=== PATIENT | female | born 1995 | race Caucasian/White ===

== ENCOUNTER 2024-07-28 01:00 | Inpatient (IN) | payer OTHER ==
[2024-07-28 13:49] VITALS: BMI 29.5
[2024-07-28] MEDS ORDERED: FENTANYL/BUPIVACAINE/NS/PF - PCEA - 50 ML DISP.SYRIN EP ONE ×3 (14:06→21:35)
[2024-07-28 14:13] LABS: ABSOLUTE IMMATURE GRANULOCYTES 0.06 x10^3/uL (0.0-0.031); BASOPHILS # 0.02 x10^3/uL (0.01-0.08); EOSINOPHIL % 0.2 % (0.7-5.8); EOSINOPHILS # 0.03 x10^3/uL (0.04-0.36); HEMATOCRIT 33.7 % (34.1-44.9); HEMOGLOBIN 11.3 g/dL (11.2-15.7); MCHC 33.5 g/dl (32.2-35.5); MEAN CELL VOLUME 87.5 fl (79.4-94.8); MEAN PLT VOLUME 9.6 fl (9.4-12.3); MONOCYTE # 1.16 x10^3/uL (0.24-0.86); MONOCYTE % 9.3 % (4.7-12.5); PLATELET COUNT 178 x10^3/uL (182-369)
[2024-07-28 14:20] LABS: INR 1.03 (0.83-1.09); PROTHROMBIN TIME (PATIENT) 11.3 SEC (9.7-13.0)
[2024-07-28] MEDS ORDERED: BUPIVACAINE HCL/PF 0.25% (2.5MG/ML) 10 ML VIAL ONE ×2 (14:21→20:20)
[2024-07-28] MEDS ORDERED: FENTANYL CITRATE/PF 50 MCG/ML VIAL ONE ×2 (14:21→20:20)
[2024-07-28 14:23] LABS: ACTIVATED PTT 26.3 SECONDS (25.2-36.5)
[2024-07-28 14:32] LABS: POTASSIUM 3.3 mmol/L (3.5-5.1)
[2024-07-28 14:34] LABS: BLOOD UREA NITROGEN 13.2 mg/dL (7-18); CALCIUM 8.5 mg/dL (8.5-10.1)
[2024-07-28 14:38] LABS: CREATININE 0.9 mg/dL (0.55-1.3)
[2024-07-28] MEDS: ELECTROLYTE-148 SOLN 1,000 ML IV SCH (14:55)
[2024-07-28] MEDS ORDERED: NALOXONE HCL 0.4 MG/ML VIAL IVPUSH PRN (15:23)
[2024-07-28] MEDS ORDERED: OXYTOCIN 30 UNITS in 0.9% NS 30 UNIT/500 ML INFUS.BAG IVPB ONE (15:34)
[2024-07-28] MEDS: OXYTOCIN 30 UNITS in 0.9% NS 30 UNIT/500 ML INFUS.BAG IVPB SCH (15:40)
[2024-07-28 17:24] LABS: HIV INTERPRETATION NEGATIVE (NEGATIVE)
[2024-07-28] MEDS: FENTANYL/BUPIVACAINE/NS/PF - PCEA - 50 ML DISP.SYRIN EP SCH (19:12)
[2024-07-29] MEDS ORDERED: FENTANYL/BUPIVACAINE/NS/PF - PCEA - 50 ML DISP.SYRIN EP ONE ×4 (00:25→09:49)
[2024-07-29] MEDS ORDERED: BUPIVACAINE HCL/PF 0.25% (2.5MG/ML) 10 ML VIAL ONE ×2 (00:52→06:33)
[2024-07-29] MEDS ORDERED: FENTANYL CITRATE/PF 50 MCG/ML VIAL ONE ×2 (00:52→06:33)
[2024-07-29] MEDS: FENTANYL/BUPIVACAINE/NS/PF - PCEA - 50 ML DISP.SYRIN EP SCH ×2 (06:51→09:53)
[2024-07-29] MEDS ORDERED: OXYTOCIN 20 UNITS in 0.9% NS 20 UNIT/1,000 ML INFUS.BAG IV ONE (11:35)
[2024-07-29] MEDS ORDERED: PHENYLEPHRINE HCL 10 MG/1 ML SINGLE DOSE VIAL ONE (12:49)
[2024-07-29] MEDS ORDERED: NITROGLYCERIN 50 MG/10 ML VIAL IVPB ONE (12:49)
[2024-07-29] MEDS ORDERED: ceFAZolin SODIUM 1 GM VIAL ONE (12:58)
[2024-07-29] MEDS: METHYLERGONOVINE MALEATE 0.2 MG/1 ML AMP IM PRN (13:06)
[2024-07-29] MEDS: OXYTOCIN 20 UNITS in 0.9% NS 20 UNIT/1,000 ML INFUS.BAG IV SCH (13:30)
[2024-07-29] MEDS ORDERED: oxyCODONE HCL 5 MG TABLET PO PRN (13:41)
[2024-07-29] MEDS ORDERED: ACETAMINOPHEN 325 MG TABLET (FP) PO PRN (13:41)
[2024-07-29] MEDS ORDERED: WITCH HAZEL 50% (TUCKS) 40 PAD/JAR PAD TP PRN (13:41)
[2024-07-29] MEDS ORDERED: BENZOCAINE 28 GM HEMORRHOIDAL OINTMENT TP PRN (13:41)
[2024-07-29] MEDS ORDERED: BISACODYL 10 MG SUPP.RECT RC PRN (13:41)
[2024-07-29 15:53] LABS: HEMATOCRIT 27.9 % (34.1-44.9); HEMOGLOBIN 9.4 g/dL (11.2-15.7); MCHC 33.7 g/dl (32.2-35.5); MEAN CELL VOLUME 88.6 fl (79.4-94.8); MEAN PLT VOLUME 9.6 fl (9.4-12.3); PLATELET COUNT 168 x10^3/uL (182-369); RDW 13.2 % (12.1-16.5)
[2024-07-29] MEDS: IBUPROFEN 600 MG TABLET (FP) PO PRN (16:00)
[2024-07-29] MEDS ORDERED: IBUPROFEN 600 MG TABLET (FP) PO ONE (16:10)
[2024-07-29 17:14] VITALS: RESP 18
[2024-07-29 19:01] LABS: HEMATOCRIT 25.3 % (34.1-44.9); HEMOGLOBIN 8.6 g/dL (11.2-15.7); MEAN CELL VOLUME 87.2 fl (79.4-94.8); PLATELET COUNT 161 x10^3/uL (182-369); RDW 13.2 % (12.1-16.5)
[2024-07-30 17:29] LABS: ABSOLUTE IMMATURE GRANULOCYTES 0.26 x10^3/uL (0.0-0.031); BASOPHILS # 0.05 x10^3/uL (0.01-0.08); EOSINOPHIL % 0.7 % (0.7-5.8); EOSINOPHILS # 0.13 x10^3/uL (0.04-0.36); HEMATOCRIT 26.1 % (34.1-44.9); MCHC 34.5 g/dl (32.2-35.5); MEAN CELL VOLUME 88.2 fl (79.4-94.8); MEAN PLT VOLUME 9.7 fl (9.4-12.3); MONOCYTE # 1.87 x10^3/uL (0.24-0.86); PLATELET COUNT 161 x10^3/uL (182-369); RDW 13.6 % (12.1-16.5)
[2024-07-30] MEDS ORDERED: SENNOSIDES/DOCUSATE COMBO (SENNA PLUS) TABLET (UD) PO PRN (22:00)
[2024-07-31] MEDS: BENZOCAINE 20% 57 GM BOTTLE TP PRN (09:20)
[2024-07-31 10:25] VITALS: BP 113/71; PULSE 109; TEMP 97.5
== END 2024-07-31 14:10 | disposition home or self-care (01) | DRG 560 ==
LOC: JDEL 01:00 → JLDR 12:45 → J3W 07-29 17:00
PROVIDERS: ADMIT Obstetrics & Gynecology; ATTEND Specialist
PROC: 0W8NXZZ Division of Female Perineum, External Approach (ICD-10-PCS; principal; 2024-07-29)
PROC: 10D07Z6 Extraction of Products of Conception, Vacuum, Via Natural or Artificial Opening (ICD-10-PCS; 2024-07-29)
PROC: 30233N1 Transfusion of Nonautologous Red Blood Cells into Peripheral Vein, Percutaneous Approach (ICD-10-PCS; 2024-07-30)
DX: O75.81 Maternal exhaustion complicating labor and delivery (principal); Z3A.39 39 weeks gestation of pregnancy; Z37.0 Single live birth; O75.89 Other specified complications of labor and delivery; R42 Dizziness and giddiness; O73.0 Retained placenta without hemorrhage; O99.893 Other specified diseases and conditions complicating puerperium; R00.0 Tachycardia, unspecified; O99.02 Anemia complicating childbirth; D64.9 Anemia, unspecified; I95.89 Other hypotension
CPT/HCPCS: 36415; 36430; 59025; 59409; 80048; 85025; 85610; 85730; 86780; 86850; 86900; 86901; 86922; 87389; P9058